=== PATIENT | male | born 1940 | race Caucasian/White ===

== ENCOUNTER → 2017-04-11 | Outpatient (CLI) | payer MEDICARE, OTHER ==
--- NOTE | 2017-04-11 11:49 | Diagnostic Imaging Report ---
PROCEDURE: CT abdomen and pelvis without contrast. TECHNIQUE: Multiple contiguous axial images were obtained through the abdomen and pelvis without the use of intravenous contrast. INDICATION: Hematuria. COMPARISON: No prior studies are available for comparison. FINDINGS: The lung bases are clear. No discrete liver mass is identified. The gallbladder appears to be surgically absent. The pancreas and spleen are unremarkable. No adrenal mass is identified. The kidneys are unremarkable. No definite renal calculi or hydronephrosis is detected. Aorta is nonaneurysmal. There are postop changes in the right abdomen for partial right colon resection. Anastomosis is unremarkable. Small and large bowel loops are normal in caliber. There is no ascites. The bladder is moderately obscured by beam hardening artifact from patient's right hip prosthesis. No definite bladder calculi are seen. Evaluation for bladder mass or bladder wall thickening is difficult on this study. No lymphadenopathy is identified. Bony structures demonstrate spondylolisthesis of L5 on S1 with bilateral pars defects noted. IMPRESSION: Essentially unremarkable CT of the abdomen and pelvis without contrast. No renal calculi or hydronephrosis is seen. Note is made that the bladder is obscured by artifact. Dictated by: Dictated on workstation # [id number]
== END ==
LOC: RAD 10:54
PROVIDERS: ATTEND Urology
DX: R31.9 Hematuria, unspecified (principal); Z96.641 Presence of right artificial hip joint
CPT/HCPCS: 74176